=== PATIENT | male | born 1980 | race Two or more races ===

== ENCOUNTER 2024-12-18 16:55 | Outpatient (CLI) | payer MEDICARE, SELFPAY ==
[2024-12-18 17:59] LABS: Hematocrit 48.7 % (40-54); Hemoglobin 16.3 g/dL (13.0-16.5); Immature Granulocytes Count 0.020 X10^3/uL (0.0-0.0); Mean Corp Hgb Conc 33.5 g/dL (32-36); Mean Corpuscular Volume 85.9 fL (80-94); Mean Platelet Vol. 10.1 fl (6.2-12.0); NRBC Flagged by Analyzer 0 % (0-5); Platelet Count 302 K/mm3 (150-450); RBC Distribution Width CV 12.6 % (11.6-14.6); RBC Distribution Width SD 39.3 fl (35.1-43.9); Red Blood Count 5.67 M/mm3 (4.6-6.2); White Blood Count 6.1 K/mm3 (4.4-11.0)
[2024-12-18 18:38] LABS: AST(SGOT) 17 U/L (<=37); Alanine Aminotransfer ALT/SGPT 15 U/L (<=46); Albumin, Serum 4.4 g/dL (3.5-5.0); Alkaline Phosphatase 56 U/L (40-129); Anion Gap 10 (5-15); BUN 8 mg/dL (4-19); BUN/Creat Ratio 9.0 RATIO (10-20); Calcium,Total 9.2 mg/dL (7.6-11.0); Carbon Dioxide 24.3 mmol/L (21.0-32.0); Chloride 109 mmol/L (98-108); Cholesterol 136 mg/dL (<=200); Globulin 2.0 g/dL (2.2-4.2); Glucose 97 mg/dL (70-99); Low Density Lipoprotein Calc. 82 mg/dL; Potassium 4.1 mmol/L (3.3-5.1); Triglycerides 56 mg/dL; Very Low Density Lipoprotein 11 mg/dL (5-40); cholesterol:hdl ratio screen 3.16
[2024-12-24 12:08] LABS: Ash, White <0.10 kU/L (Class 0); Black Walnut 0.11 kU/L (Class 0/I); Cat Hair / Dander,Stand <0.10 kU/L (Class 0); Cedar, Mountain <0.10 kU/L (Class 0); Cockroach, American 0.10 kU/L (Class 0/I); Dog Epithelia 0.12 kU/L (Class 0/I); Elm, American White 0.10 kU/L (Class 0/I); Mulberry, White <0.10 kU/L (Class 0); Oak, White <0.10 kU/L (Class 0); Pigweed, Rough <0.10 kU/L (Class 0); Ragweed, Short/Common 0.14 kU/L (Class 0/I); Sycamore, American 0.10 kU/L (Class 0/I)
== END 2024-12-18 23:59 | disposition home or self-care (01) ==
PROVIDERS: Referring Provider Nurse Practitioner Family; Visit Provider Nurse Practitioner Family
DX: A69.20 Lyme disease, unspecified (principal); A44.0 Systemic bartonellosis; R53.1 Weakness; R45.4 Irritability and anger; K59.00 Constipation, unspecified; R11.0 Nausea; R61 Generalized hyperhidrosis; F32.A Depression, unspecified; R41.89 Other symptoms and signs involving cognitive functions and awareness; R51.9 Headache, unspecified; E29.1 Testicular hypofunction; R06.7 Sneezing; G89.29 Other chronic pain
CPT/HCPCS: 80053; 80061; 82785; 85025; 86003